=== PATIENT | female | born 1950 | race American Indian/Alaskan Native ===

== ENCOUNTER 2018-10-17 20:25 | Emergency (ER) | payer MEDICARE ==
[2018-10-17 20:49] VITALS: BP 178/77
[2018-10-17] MEDS ORDERED: BOOSTRIX IM ONE ×2 (20:53→23:05)
--- NOTE | 2018-10-17 20:53 | Emergency Department Report ---
Chief Complaint: Fall Stated Complaint: FELL DOWN STEPS Time Seen by Provider: 10/17/18 20:48 - HPI History of Present Illness: pt presents with skin tear and edema to the left eye brow pt had a down the steps and landed on the concrete no LOC, no numbness, weakness no CP or dizziness prior to fall unsure of tetanus MSE screening note: Focused history and physical exam performed. Due to findings the following was ordered: ct head, tetanus vaccine ED Disposition for MSE Condition: Stable
--- NOTE | 2018-10-17 22:21 | Cat Scan Report ---
PROCEDURE: CT HEAD/BRAIN WO CON TECHNIQUE: Computerized tomography of the head was performed without contrast material. CT DOSE LENGTH PRODUCT: mGycm HISTORY: fall, hit head, edema above the left eye COMPARISONS: None . FINDINGS: Skull and scalp: Normal . Paranasal sinuses: Normal . Ventricles and subarachnoid spaces: Normal . Cerebrum: No evidence of hemorrhage, acute infarction or mass . Cerebellum and brainstem: No evidence of hemorrhage, acute infarction or mass . Vasculature: Normal . IMPRESSION: Normal Examination . This document is electronically signed by Jayjay Galdamez MD., October 17 2018 10:19:46 PM ET
--- NOTE | 2018-10-17 23:22 | Emergency Department Report ---
ED Head Trauma HPI - General Chief complaint: Fall Stated complaint: FELL DOWN STEPS Time Seen by Provider: 10/17/18 20:48 Source: patient Mode of arrival: Ambulatory Limitations: No Limitations - History of Present Illness MD Complaint: head injury -: days(s) (1) Location: frontal Loss of Consciousness: no Place: home Radiation: none Severity: mild Consistency: constant Other Injuries: other (head trauma contusions a) Associated Symptoms: denies: confusion, amnesia, repetitive questioning, vision changes, nausea, vertigo, syncope, weakness, tingling, neck pain - Related Data Previous Rx's Medication Instructions Recorded Last Taken Type traMADol [Ultram] 50 mg PO Q6HR PRN #10 tablet 10/17/18 Unknown Rx Allergies/Adverse reactions: Allergies Allergy/AdvReac Type Severity Reaction Status Date / Time aspirin Allergy Nausea Verified 10/17/18 20:30 ED Review of Systems ROS: Stated complaint: FELL DOWN STEPS Other details as noted in HPI Constitutional: denies: chills, fever Eyes: denies: eye pain, eye discharge, vision change ENT: denies: ear pain, throat pain Respiratory: denies: cough, shortness of breath, wheezing Cardiovascular: denies: chest pain, palpitations Endocrine: no symptoms reported Gastrointestinal: denies: abdominal pain, nausea, diarrhea Genitourinary: denies: urgency, dysuria, discharge Musculoskeletal: denies: back pain, joint swelling, arthralgia Skin: change in color. denies: rash, lesions Neurological: denies: headache, weakness, paresthesias Psychiatric: denies: anxiety, depression Hematological/Lymphatic: denies: easy bleeding, easy bruising ED Past Medical Hx - Past Medical History Previous Medical History?: Yes Hx COPD: Yes - Surgical History Past Surgical History?: Yes Additional Surgical History: hysterectomy - Social History Smoking Status: Never Smoker Substance Use Type: None - Medications Home Medications: Home Medications Medication Instructions Recorded Confirmed Last Taken Type traMADol [Ultram] 50 mg PO Q6HR PRN #10 tablet 10/17/18 Unknown Rx ED Physical Exam - General Limitations: No Limitations General appearance: alert, in no apparent distress - Head Head exam: Present: normocephalic, other - Expanded Head Exam Expanded Head exam: Present: contusion 1 - contusion 2 - contusion - Eye Eye exam: Present: normal appearance, PERRL, EOMI, other (neg fundus exam). Absent: nystagmus Pupils: Present: normal accommodation. Absent: unequal - ENT ENT exam: Present: mucous membranes moist - Neck Neck exam: Present: normal inspection, full ROM. Absent: tenderness, lymphadenopathy, thyromegaly - Respiratory Respiratory exam: Present: normal lung sounds bilaterally. Absent: respiratory distress, wheezes, rales, chest wall tenderness, accessory muscle use - Cardiovascular Cardiovascular Exam: Present: regular rate, normal rhythm. Absent: systolic murmur, diastolic murmur, rubs, gallop - GI/Abdominal GI/Abdominal exam: Present: soft, normal bowel sounds - Extremities Exam Extremities exam: Present: normal inspection - Back Exam Back exam: Present: normal inspection - Neurological Exam Neurological exam: Present: alert, oriented X3 - Psychiatric Psychiatric exam: Present: normal affect, normal mood - Skin Skin exam: Present: warm, dry, intact, normal color. Absent: rash ED Course Vital Signs 10/17/18 20:47 Temperature 98.3 F Pulse Rate 76 Respiratory 16 Rate Blood Pressure 178/77 O2 Sat by Pulse 97 Oximetry Critical care attestation.: If time is entered above; I have spent that time in minutes in the direct care of this critically ill patient, excluding procedure time. ED Disposition Clinical Impression: Fall on stairs, Head injury due to trauma, Head contusion Disposition: DC-01 TO HOME OR SELFCARE Is pt being admited?: No Does the pt Need Aspirin: No Condition: Stable Instructions: Minor Head Injury (ED), Contusion in Adults (ED), Scalp Contusion in Adults (ED), Ice Pack Application (ED) Prescriptions: traMADol [Ultram] 50 mg PO Q6HR PRN #10 tablet PRN Reason: Pain Referrals: BRODY MARQUES MD [Primary Care Provider] - 3-5 Days
== END 2018-10-17 23:45 | disposition home or self-care (01) ==
LOC: ED 20:25
DX: S09.90XA Unspecified injury of head, initial encounter (principal); J44.9 Chronic obstructive pulmonary disease, unspecified; Z88.8 Allergy status to other drugs, medicaments and biological substances; W10.9XXA Fall (on) (from) unspecified stairs and steps, initial encounter; Y93.89 Activity, other specified; Y92.89 Other specified places as the place of occurrence of the external cause; Y99.8 Other external cause status
CPT/HCPCS: 70450; 90471; 90715